=== PATIENT | female | born 1975 ===

== ENCOUNTER 2017-09-18 16:54 | Emergency (ER) | payer OTHER ==
[~2017-09-18] VITALS: Ht 165.1 cm; Wt 81.6 kg
[~2017-09-18 16:54] MED LIST: AMOX1TAB12 PO; AMPICILLIN TRI500 MG PO
[2017-09-18] MEDS ORDERED: ANTIBIOTICO (17:10)
== END 2017-09-18 21:22 | disposition home or self-care (01) ==
LOC: ER 16:54
DX: R10.12 Left upper quadrant pain (principal)